=== PATIENT | female | born 1970 | race Caucasian/White ===

== ENCOUNTER 2024-07-06 19:25 | Emergency (ER) | payer OTHER ==
[~2024-07-06] VITALS: Ht 157.5 cm; Wt 80.1 kg
[2024-07-06 19:32] VITALS: BP 138/105
[2024-07-06] MEDS ORDERED: LYRICA75 MG PO (19:39)
[2024-07-06] MEDS ORDERED: Tetanus,Diphther Toxoid Adult 0.5 ML SYRINGE IM ONE (20:00)
== END 2024-07-06 20:11 | disposition home or self-care (01) ==
LOC: ED 19:25
DX: S61.213A Laceration without foreign body of left middle finger without damage to nail, initial encounter (principal); W26.8XXA Contact with other sharp object(s), not elsewhere classified, initial encounter; Y93.G3 Activity, cooking and baking
CPT/HCPCS: 90714